=== PATIENT | female | born 1995 | race Two or more races ===

== ENCOUNTER 2020-10-11 21:03 | Emergency (ER) | payer SELFPAY ==
[~2020-10-11] VITALS: Ht 160 cm; Wt 63.5 kg
--- NOTE | 2020-10-11 21:27 | NUR ---
Pt provided urine sample, sent to lab.
--- NOTE | 2020-10-11 21:30 | NUR ---
Dr. Montiel at bedside for MSE.
[2020-10-11] MEDS ORDERED: IV NORMAL SALINE 1000 ML BAG IV ONE (21:45)
[2020-10-11 21:58] LABS: *BILIRUBIN,URIN NEGATIVE (NEGATIVE); *BLOOD, URINE NEGATIVE (NEGATIVE); *CLARITY,URINE CLEAR (CLEAR); *COLOR,URINE LIGHT YELLOW (YELLOW); *KETONES,URINE NEGATIVE (NEGATIVE); *UROBILINOGEN,URINE 0.2 E.U./dl (NORMAL); LEUKOCYTE ESTERASE ,URINE 1+ (NEGATIVE); NITRITE, URINE NEGATIVE (NEGATIVE); PH,URINE 6.5 (5.0-8.0); UGLUCOSE NEGATIVE (NEGATIVE)
[2020-10-11 22:02] LABS: BASOPHILS % (AUTO) 0.5 % (0.0-2.0); EOSINOPHILS # (AUTO) 0.2 K/uL (0.0-0.7); EOSINOPHILS % (AUTO) 2.7 % (0.0-7.0); HEMATOCRIT 40.3 % (31.2-41.9); HEMOGLOBIN 13.2 g/dL (10.9-14.3); LYMPHOCYTES # (AUTO) 3.1 K/uL (20.0-40.0); LYMPHOCYTES % (AUTO) 35.9 % (20.5-51.5); MEAN CORPUSCULAR HEMOGLOBIN 28.4 uug (24.7-32.8); MEAN CORPUSCULAR HGB CONC 33 g/dL (32.3-35.6); MEAN CORPUSCULAR VOLUME 86.7 fL (75.5-95.3); MONOCYTES % (AUTO) 11.3 % (0.0-11.0); NEUTROPHILS # (AUTO) 4.3 K/uL (1.8-8.9); NEUTROPHILS % (AUTO) 49.6 % (38.5-71.5); PLATELET COUNT (AUTO) 268 K/uL (179-408); RED BLOOD CELL COUNT(AUTO) 4.65 MIL/uL (3.63-4.92); WHITE BLOOD COUNT (AUTO) 8.7 K/uL (3.8-11.8)
[2020-10-11 22:08] LABS: CARBON DIOXIDE 25 mmol/L (21-32); CHLORIDE 103 mmol/L (98-107); CREATININE 0.4 mg/dL (0.6-1.3); GLUCOSE 92 mg/dL (74-106)
[2020-10-11 22:09] LABS: RBC,URINE 0-3 /HPF (0-3)
[2020-10-11 22:10] LABS: BACTERIA,URINE FEW /HPF (NONE SEEN); SQUAMOUS EPITHELIAL CELL,UR MODERATE /HPF (NONE SEEN)
[2020-10-11 22:16] LABS: UREA NITROGEN, BLOOD 9 mg/dL (7-18)
--- NOTE | 2020-10-11 22:16 | NUR ---
Ultrasound at bedside.
[2020-10-11] MEDS ORDERED: NITR100C6 PO ×2 (23:21→23:31)
[2020-10-11 23:38] VITALS: BP 120/70
--- NOTE | 2020-10-11 23:38 | NUR ---
Patient discharged to home in stable condition. Written and verbal after care instructions given. Patient verbalizes understanding of instructions. Stressed follow up or return to ER for worsening s/s. Patient out of ER with steady gait, no acute signs of distress, VSS, all belongings taken, IV site discontinued.
== END 2020-10-11 23:39 | disposition home or self-care (01) ==
LOC: ER 21:06
DX: O23.41 Unspecified infection of urinary tract in pregnancy, first trimester (principal); Z3A.01 Less than 8 weeks gestation of pregnancy; R14.0 Abdominal distension (gaseous)
CPT/HCPCS: 36415; 76856; 85025; A4663